=== PATIENT | female | born 1970 | race Caucasian/White ===

== ENCOUNTER 2017-04-20 10:55 | Emergency (ER) | payer OTHER, BC ==
[~2017-04-20] VITALS: Ht 154.9 cm; Wt 67.7 kg
[~2017-04-20 10:55] MED LIST: CIPR500T19; FLAG500T; VICO5TAB
[2017-04-20] MEDS ORDERED: MULT1TAB18 PO (11:04)
--- NOTE | 2017-04-20 11:54 | REP ---
Right ankle series: Four views. History: Right ankle and foot pain post injury. Findings: Four views of the right ankle demonstrate an intact ankle mortise. No fracture or subluxation is seen. Impression: Negative views of the right ankle. Signed by Sukhdeep Araya MD 04/20/2017 11:45 A
--- NOTE | 2017-04-20 11:55 | REP ---
Right foot series: 4 views History: Pain after an injury . Findings: Four views of the right foot demonstrate normal bones, joints, and soft tissues. No fracture or subluxation is seen. No opaque foreign body noted. Impression Negative right foot series. Signed by Sukhdeep Araya MD 04/20/2017 11:46 A
[2017-04-20] MEDS ORDERED: IBUPROFEN 600 MG TAB PO ONE (12:30)
[2017-04-20 12:33] VITALS: BP 117/65
== END 2017-04-20 12:43 | disposition home or self-care (01) ==
LOC: M ED 10:55
DX: S93.601A Unspecified sprain of right foot, initial encounter (principal); S90.31XA Contusion of right foot, initial encounter; X58.XXXA Exposure to other specified factors, initial encounter; Y92.9 Unspecified place or not applicable; Y93.9 Activity, unspecified; Y99.0 Civilian activity done for income or pay; Z79.899 Other long term (current) drug therapy; Z91.040 Latex allergy status; Z88.0 Allergy status to penicillin

== ENCOUNTER 2017-04-25 10:50 | Emergency (ER) | payer OTHER, BC ==
[~2017-04-25] VITALS: Ht 152.4 cm; Wt 62.7 kg
[~2017-04-25 10:50] MED LIST changes: +MULT1TAB18 PO
[2017-04-25 10:52] VITALS: BP 131/72
--- NOTE | 2017-04-25 12:33 | REP ---
REASON: Pain after trauma. COMPARISON: Five days ago. FINDINGS: The joint spaces are symmetric and relatively well maintained. There is no evidence of acute fracture or destructive osseous lesion. IMPRESSION: Negative. There is no change from the prior exam. If the patient is experiencing chronic pain, consider followup with MRI if clinically relevant. Signed by Riaz Wilson DO 04/25/2017 02:23 P
== END 2017-04-25 12:59 | disposition home or self-care (01) ==
LOC: M ED 10:50
DX: S90.31XD Contusion of right foot, subsequent encounter (principal); Z51.89 Encounter for other specified aftercare; W22.8XXD Striking against or struck by other objects, subsequent encounter; Y92.129 Unspecified place in nursing home as the place of occurrence of the external cause; Y93.89 Activity, other specified; Y99.0 Civilian activity done for income or pay; Z79.899 Other long term (current) drug therapy; Z88.0 Allergy status to penicillin; Z91.040 Latex allergy status

== ENCOUNTER 2017-09-25 11:25 | Emergency (ER) | payer OTHER, BC | END 2017-09-25 12:20 | disposition home or self-care (01) | LOC: M ED 11:25 | DX: M54.16 Radiculopathy, lumbar region (principal); Z87.19 Personal history of other diseases of the digestive system; Z88.0 Allergy status to penicillin; Z91.040 Latex allergy status | CPT/HCPCS: 99282 ==

== ENCOUNTER 2017-10-14 13:34 | Inpatient (IN) | payer BC, OTHER ==
[2017-10-14] MEDS: NS 1,000 ML IV ×3 (14:27→22:20)
[2017-10-14] MEDS: KETOROLAC 30 MG/ML VIAL (J1885) IV (14:27)
[2017-10-14] MEDS: ONDANSETRON 4MG/2ML VIAL (J2405) IV ×3 (14:27→20:16)
[2017-10-14 14:28] LABS: BASO % 0.1 % (0.0-1.0); HEMATOCRIT 45.2 % (36.0-47.0); HEMOGLOBIN 15.4 g/dl (12.0-16.0); IMMATURE GRANULOCYTE % 0.3 % (0-3.0); LYMPH # 1.2 10^3/uL (1.5-4.5); LYMPH % 8.9 % (24.0-44.0); MEAN CORPUSCULAR HEMOGLOBIN 30.3 pg (27.0-33.0); MEAN CORPUSCULAR HGB CONC 34.1 g/dl (32.0-36.5); MONO # 0.6 10^3/uL (0.0-0.8); MONO % 4.3 % (0.0-5.0); NEUTROPHILS # 11.2 10^3/uL (1.8-7.7); NEUTROPHILS % 86.4 % (36.0-66.0); PLATELET COUNT, AUTOMATED 376 10^3/uL (150-450); RED BLOOD COUNT 5.08 10^6/uL (4.00-5.40); RED CELL DISTRIBUTION WIDTH 12.3 % (11.5-14.5); WHITE BLOOD COUNT 12.9 10^3/uL (4.0-10.0)
[2017-10-14 14:51] LABS: ALBUMIN 4.1 GM/DL (3.2-5.2); ALBUMIN/GLOBULIN RATIO 0.95 (1.00-1.93); ALKALINE PHOSPHATASE 79 U/L (45-117); ALT/SGPT 27 U/L (12-78); AMYLASE 66 U/L (25-115); ANION GAP 9 MEQ/L (8-16); AST/SGOT 23 U/L (7-37); BILIRUBIN,DIRECT 0.1 MG/DL (0.0-0.2); BILIRUBIN,TOTAL 0.5 MG/DL (0.2-1.0); BLOOD UREA NITROGEN 13 MG/DL (7-18); CALCIUM LEVEL 8.9 MG/DL (8.5-10.1); CARBON DIOXIDE LEVEL 25 MEQ/L (21-32); CHLORIDE LEVEL 105 MEQ/L (98-107); CREATININE FOR GFR 0.81 MG/DL (0.55-1.30); GLOMERULAR FILTRATION RATE > 60.0 (>58); GLUCOSE, FASTING 123 MG/DL (70-100); LIPASE 189 U/L (73-393); SODIUM LEVEL 139 MEQ/L (136-145); TOTAL PROTEIN 8.4 GM/DL (6.4-8.2)
[2017-10-14] MEDS ORDERED: ISOVUE-370 76% 100ML VIAL (Q9967) As Ordered (14:52)
[2017-10-14 15:31] LABS: KETONE, URINE AUTO RFX 1+ mg/dL (NEGATIVE); MUCUS, URINE RFX SMALL (NEGATIVE); NITRITE, URINE AUTO RFX NEGATIVE (NEGATIVE); RBC, URINE AUTO RFX 5 /HPF (0-3); SQUAM EPITHELIAL CELL UR AURFX 12 /HPF (0-6); WBC, URINE AUTO RFX 3 /HPF (0-3)
[2017-10-14 15:32] LABS: LEUKOCYTE ESTERASE UR AUTO RFX TRACE (NEGATIVE); SPECIFIC GRAVITY UR AUTO RFX >1.060 (1.002-1.035)
[2017-10-14] MEDS: PANTOPRAZOLE 40MG INJ (PROTONIX) (C9113) IV (19:07)
[2017-10-14] MEDS: CIPROFLOXACIN 400 MG in APPROPRIATE DILUENT 1 EA IV (19:23)
[2017-10-14] MEDS: PROMETHAZINE INJ 25 MG/ML VIAL (J2550) IV (21:29)
[2017-10-14] MEDS: MORPHINE 4 MG/ML 1ML VIAL (J2270) IV (21:30)
[2017-10-14] MEDS: metroNIDAZOLE 500 MG in APPROPRIATE DILUENT 1 EA IV (22:20)
[2017-10-15] MEDS: metroNIDAZOLE 500 MG in APPROPRIATE DILUENT 1 EA IV ×3 (04:48→20:58)
[2017-10-15] MEDS: ONDANSETRON 4MG/2ML VIAL (J2405) IV ×2 (04:55→18:18)
[2017-10-15] MEDS: NS 1,000 ML IV ×3 (04:55→23:58)
[2017-10-15] MEDS: CIPROFLOXACIN 400 MG in APPROPRIATE DILUENT 1 EA IV ×2 (06:23→18:20)
[2017-10-15 06:57] LABS: HEMATOCRIT 37.2 % (36.0-47.0); MEAN CORPUSCULAR HEMOGLOBIN 30.4 pg (27.0-33.0); MEAN CORPUSCULAR HGB CONC 33.9 g/dl (32.0-36.5); MEAN CORPUSCULAR VOLUME 89.9 fl (80.0-96.0); PLATELET COUNT, AUTOMATED 303 10^3/uL (150-450); RED BLOOD COUNT 4.14 10^6/uL (4.00-5.40); RED CELL DISTRIBUTION WIDTH 12.6 % (11.5-14.5); WHITE BLOOD COUNT 9.8 10^3/uL (4.0-10.0)
[2017-10-15 07:06] LABS: HEMOGLOBIN 12.6 g/dl (12.0-16.0)
[2017-10-15 07:18] LABS: ANION GAP 7 MEQ/L (8-16); BLOOD UREA NITROGEN 12 MG/DL (7-18); CALCIUM LEVEL 7.9 MG/DL (8.5-10.1); CARBON DIOXIDE LEVEL 27 MEQ/L (21-32); CHLORIDE LEVEL 110 MEQ/L (98-107); CREATININE FOR GFR 0.66 MG/DL (0.55-1.30); GLOMERULAR FILTRATION RATE > 60.0 (>58); GLUCOSE, FASTING 122 MG/DL (70-100); POTASSIUM SERUM 3.3 MEQ/L (3.5-5.1); SODIUM LEVEL 144 MEQ/L (136-145)
[2017-10-15] MEDS: PROMETHAZINE INJ 25 MG/ML VIAL (J2550) IV (09:47)
[2017-10-15] MEDS: PANTOPRAZOLE 40MG INJ (PROTONIX) (C9113) IV (09:47)
[2017-10-15] MEDS: MORPHINE 4 MG/ML 1ML VIAL (J2270) IV ×3 (09:50→18:20)
[2017-10-15] MEDS: CEPACOL LOZENGE PO ×2 (13:21→16:01)
[2017-10-15] MEDS: METOCLOPRAMIDE INJ 10MG/2ML VIAL (J2765) IV ×2 (13:23→21:03)
[2017-10-15] MEDS: CHLORASEPTIC SPRAY MT ×2 (13:23→16:01)
[2017-10-16] MEDS: metroNIDAZOLE 500 MG in APPROPRIATE DILUENT 1 EA IV ×2 (05:30→15:23)
[2017-10-16] MEDS: CIPROFLOXACIN 400 MG in APPROPRIATE DILUENT 1 EA IV ×2 (06:34→18:51)
[2017-10-16 06:43] LABS: HEMATOCRIT 34.5 % (36.0-47.0); HEMOGLOBIN 11.8 g/dl (12.0-16.0); MEAN CORPUSCULAR HEMOGLOBIN 30.8 pg (27.0-33.0); MEAN CORPUSCULAR HGB CONC 34.2 g/dl (32.0-36.5); MEAN CORPUSCULAR VOLUME 90.1 fl (80.0-96.0); PLATELET COUNT, AUTOMATED 280 10^3/uL (150-450); RED BLOOD COUNT 3.83 10^6/uL (4.00-5.40); RED CELL DISTRIBUTION WIDTH 12.2 % (11.5-14.5); WHITE BLOOD COUNT 9.4 10^3/uL (4.0-10.0)
[2017-10-16 06:57] LABS: ANION GAP 7 MEQ/L (8-16); BLOOD UREA NITROGEN 9 MG/DL (7-18); CALCIUM LEVEL 7.5 MG/DL (8.5-10.1); CARBON DIOXIDE LEVEL 24 MEQ/L (21-32); CHLORIDE LEVEL 113 MEQ/L (98-107); CREATININE FOR GFR 0.54 MG/DL (0.55-1.30); GLOMERULAR FILTRATION RATE > 60.0 (>58); GLUCOSE, FASTING 90 MG/DL (70-100); POTASSIUM SERUM 3.4 MEQ/L (3.5-5.1); SODIUM LEVEL 144 MEQ/L (136-145)
[2017-10-16] MEDS: PANTOPRAZOLE 40MG INJ (PROTONIX) (C9113) IV (08:52)
[2017-10-16] MEDS: MORPHINE 4 MG/ML 1ML VIAL (J2270) IV (08:52)
[2017-10-16] MEDS: ONDANSETRON 4MG/2ML VIAL (J2405) IV (08:53)
[2017-10-16] MEDS: ACETAMINOPHEN TAB 650MG DOSE (2X325MG) PO (12:09)
[2017-10-16] MEDS ORDERED: ONDANSETRON 4 MG ORAL DISINTEGRATING TAB (S0181) PO (20:15)
[2017-10-17 07:24] LABS: HEMATOCRIT 35.6 % (36.0-47.0); HEMOGLOBIN 12.1 g/dl (12.0-16.0); MEAN CORPUSCULAR HEMOGLOBIN 29.8 pg (27.0-33.0); MEAN CORPUSCULAR VOLUME 87.7 fl (80.0-96.0); PLATELET COUNT, AUTOMATED 312 10^3/uL (150-450); RED BLOOD COUNT 4.06 10^6/uL (4.00-5.40); WHITE BLOOD COUNT 7.3 10^3/uL (4.0-10.0)
[2017-10-17 07:45] LABS: ANION GAP 6 MEQ/L (8-16); BLOOD UREA NITROGEN 6 MG/DL (7-18); CALCIUM LEVEL 8.3 MG/DL (8.5-10.1); CARBON DIOXIDE LEVEL 26 MEQ/L (21-32); CHLORIDE LEVEL 111 MEQ/L (98-107); GLOMERULAR FILTRATION RATE > 60.0 (>58); GLUCOSE, FASTING 92 MG/DL (70-100); POTASSIUM SERUM 3.5 MEQ/L (3.5-5.1); SODIUM LEVEL 143 MEQ/L (136-145)
[2017-10-17] MEDS: PANTOPRAZOLE 40MG TAB (PROTONIX) PO (08:30)
== END 2017-10-17 11:45 | disposition home or self-care (01) | DRG 247 ==
LOC: M ED 13:34 → M ED INP 15:54 → M PED 20:53
DX: K56.609 Unspecified intestinal obstruction, unspecified as to partial versus complete obstruction (principal)

== ENCOUNTER → 2017-10-31 | Outpatient (CLI) | payer BC ==
[2017-10-31 10:59] LABS: BASO % 0.1 % (0.0-1.0); EOS # 0.1 10^3/uL (0.0-0.50); EOS % 0.8 % (0.0-3.0); HEMATOCRIT 41.2 % (36.0-47.0); HEMOGLOBIN 13.7 g/dl (12.0-15.5); IMMATURE GRANULOCYTE % 0.3 % (0-3.0); LYMPH # 2.4 10^3/uL (1.5-4.5); LYMPH % 26.3 % (24.0-44.0); MEAN CORPUSCULAR HEMOGLOBIN 29.8 pg (27.0-33.0); MEAN CORPUSCULAR HGB CONC 33.3 g/dl (32.0-36.5); MEAN CORPUSCULAR VOLUME 89.6 fl (80.0-96.0); MONO # 0.8 10^3/uL (0.0-0.8); MONO % 8.5 % (0.0-5.0); NEUTROPHILS # 5.8 10^3/uL (1.8-7.7); PLATELET COUNT, AUTOMATED 361 10^3/uL (150-450); RED CELL DISTRIBUTION WIDTH 12.2 % (11.5-14.5)
== END ==
LOC: M LAB 10:26
DX: R19.7 Diarrhea, unspecified (principal)
CPT/HCPCS: 83516

== ENCOUNTER 2017-11-07 18:31 | Observation (INO) | payer BC ==
[2017-11-07] MEDS: NS 1,000 ML IV (19:58)
[2017-11-07] MEDS: ONDANSETRON 4MG/2ML VIAL (J2405) IV (19:58)
[2017-11-07] MEDS: MORPHINE 4 MG/ML 1ML VIAL (J2270) IV (19:59)
[2017-11-07 20:07] LABS: BASO % 0.2 % (0.0-1.0); EOS % 0.2 % (0.0-3.0); HEMATOCRIT 42.6 % (36.0-47.0); HEMOGLOBIN 14.5 g/dl (12.0-15.5); IMMATURE GRANULOCYTE % 0.3 % (0-3.0); LYMPH # 1.7 10^3/uL (1.5-4.5); LYMPH % 10.2 % (24.0-44.0); MONO # 0.9 10^3/uL (0.0-0.8); MONO % 5.4 % (0.0-5.0); NEUTROPHILS # 13.8 10^3/uL (1.8-7.7); NEUTROPHILS % 83.7 % (36.0-66.0); PLATELET COUNT, AUTOMATED 345 10^3/uL (150-450); RED BLOOD COUNT 4.84 10^6/uL (4.00-5.40); RED CELL DISTRIBUTION WIDTH 12.2 % (11.5-14.5); WHITE BLOOD COUNT 16.5 10^3/uL (4.0-10.0)
[2017-11-07 20:12] LABS: AMORPHOUS SEDIMENT RFX SMALL (NEGATIVE); KETONE, URINE AUTO RFX TRACE mg/dL (NEGATIVE); LEUKOCYTE ESTERASE UR AUTO RFX 1+ (NEGATIVE); MUCUS, URINE RFX SMALL (NEGATIVE); NITRITE, URINE AUTO RFX NEGATIVE (NEGATIVE); RBC, URINE AUTO RFX 2 /HPF (0-3); SPECIFIC GRAVITY UR AUTO RFX 1.009 (1.002-1.035); SQUAM EPITHELIAL CELL UR AURFX 3 /HPF (0-6); WBC, URINE AUTO RFX 9 /HPF (0-3)
[2017-11-07] MEDS ORDERED: ISOVUE-370 76% 100ML VIAL (Q9967) As Ordered (20:39)
[2017-11-07 20:42] LABS: ALBUMIN 4.1 GM/DL (3.2-5.2); ALKALINE PHOSPHATASE 74 U/L (45-117); ALT/SGPT 22 U/L (12-78); ANION GAP 7 MEQ/L (8-16); AST/SGOT 18 U/L (7-37); BILIRUBIN,DIRECT < 0.1 MG/DL (0.0-0.2); BILIRUBIN,TOTAL 0.4 MG/DL (0.2-1.0); BLOOD UREA NITROGEN 8 MG/DL (7-18); CALCIUM LEVEL 8.9 MG/DL (8.5-10.1); CARBON DIOXIDE LEVEL 25 MEQ/L (21-32); CHLORIDE LEVEL 111 MEQ/L (98-107); GLOMERULAR FILTRATION RATE > 60.0 (>58); GLUCOSE, FASTING 115 MG/DL (70-100); LIPASE 132 U/L (73-393); POTASSIUM SERUM 3.7 MEQ/L (3.5-5.1); SODIUM LEVEL 143 MEQ/L (136-145); TOTAL PROTEIN 8.2 GM/DL (6.4-8.2)
[2017-11-07 20:44] LABS: LACTIC ACID SEPSIS PROTOCOL 0.9 MMOL/L (0.4-2.0)
[2017-11-07] MEDS ORDERED: ONDANSETRON 4MG/2ML VIAL (J2405) IV (22:45)
[2017-11-08] MEDS: NS 1,000 ML IV (00:08)
[2017-11-08] MEDS: FAMOTIDINE 20 MG TAB PO ×2 (00:23→21:13)
[2017-11-08] MEDS: CIPROFLOXACIN 400 MG in APPROPRIATE DILUENT 1 EA IV ×3 (00:23→22:54)
[2017-11-08] MEDS: LACTOBACILLUS ACIDOPHILUS CAP (BACID) PO ×3 (00:23→21:13)
[2017-11-08] MEDS: metroNIDAZOLE 500 MG in APPROPRIATE DILUENT 1 EA IV ×3 (02:00→18:03)
[2017-11-08] MEDS: ACETAMINOPHEN TAB 650MG DOSE (2X325MG) PO ×3 (04:10→18:58)
[2017-11-08 06:09] LABS: HEMATOCRIT 34.5 % (36.0-47.0); MEAN CORPUSCULAR HEMOGLOBIN 29.5 pg (27.0-33.0); MEAN CORPUSCULAR HGB CONC 33.3 g/dl (32.0-36.5); MEAN CORPUSCULAR VOLUME 88.5 fl (80.0-96.0); PLATELET COUNT, AUTOMATED 293 10^3/uL (150-450); RED CELL DISTRIBUTION WIDTH 12.5 % (11.5-14.5); WHITE BLOOD COUNT 7.6 10^3/uL (4.0-10.0)
[2017-11-08 06:14] LABS: HEMOGLOBIN 11.5 g/dl (12.0-15.5)
[2017-11-08 06:27] LABS: ANION GAP 6 MEQ/L (8-16); BLOOD UREA NITROGEN 7 MG/DL (7-18); CALCIUM LEVEL 7.6 MG/DL (8.5-10.1); CARBON DIOXIDE LEVEL 23 MEQ/L (21-32); CHLORIDE LEVEL 112 MEQ/L (98-107); CREATININE FOR GFR 0.57 MG/DL (0.55-1.30); GLOMERULAR FILTRATION RATE > 60.0 (>58); GLUCOSE, FASTING 98 MG/DL (70-100); POTASSIUM SERUM 3.7 MEQ/L (3.5-5.1); SODIUM LEVEL 141 MEQ/L (136-145)
[2017-11-08] MEDS: ENOXAPARIN 40 MG/0.4 ML SYRINGE (J1650) SC (09:00)
[2017-11-09] MEDS: metroNIDAZOLE 500 MG in APPROPRIATE DILUENT 1 EA IV ×3 (01:40→10:16)
[2017-11-09 07:00] LABS: HEMATOCRIT 35.5 % (36.0-47.0); HEMOGLOBIN 11.8 g/dl (12.0-15.5); MEAN CORPUSCULAR HEMOGLOBIN 29.4 pg (27.0-33.0); MEAN CORPUSCULAR HGB CONC 33.2 g/dl (32.0-36.5); MEAN CORPUSCULAR VOLUME 88.5 fl (80.0-96.0); PLATELET COUNT, AUTOMATED 290 10^3/uL (150-450); RED BLOOD COUNT 4.01 10^6/uL (4.00-5.40); RED CELL DISTRIBUTION WIDTH 12.3 % (11.5-14.5); WHITE BLOOD COUNT 5.6 10^3/uL (4.0-10.0)
[2017-11-09 07:13] LABS: ANION GAP 6 MEQ/L (8-16); BLOOD UREA NITROGEN 4 MG/DL (7-18); CALCIUM LEVEL 8.1 MG/DL (8.5-10.1); CARBON DIOXIDE LEVEL 22 MEQ/L (21-32); CHLORIDE LEVEL 115 MEQ/L (98-107); CREATININE FOR GFR 0.64 MG/DL (0.55-1.30); GLOMERULAR FILTRATION RATE > 60.0 (>58); GLUCOSE, FASTING 93 MG/DL (70-100); POTASSIUM SERUM 3.8 MEQ/L (3.5-5.1); SODIUM LEVEL 143 MEQ/L (136-145)
[2017-11-09] MEDS: LACTOBACILLUS ACIDOPHILUS CAP (BACID) PO ×2 (08:17→21:02)
[2017-11-09] MEDS: ENOXAPARIN 40 MG/0.4 ML SYRINGE (J1650) SC (08:18)
[2017-11-09] MEDS: CIPROFLOXACIN 500 MG TAB PO ×2 (11:16→17:08)
[2017-11-09] MEDS: metroNIDAZOLE (FLAGYL) 500 MG TAB PO ×2 (14:06→21:02)
[2017-11-09] MEDS: ONDANSETRON 4 MG TAB (S0181) PO (15:36)
[2017-11-09] MEDS: FAMOTIDINE 20 MG TAB PO (21:02)
[2017-11-09] MEDS: ACETAMINOPHEN TAB 650MG DOSE (2X325MG) PO (21:04)
[2017-11-10] MEDS: ACETAMINOPHEN TAB 650MG DOSE (2X325MG) PO (01:07)
[2017-11-10] MEDS: metroNIDAZOLE (FLAGYL) 500 MG TAB PO (05:56)
[2017-11-10] MEDS: CIPROFLOXACIN 500 MG TAB PO (05:56)
[2017-11-10] MEDS: ENOXAPARIN 40 MG/0.4 ML SYRINGE (J1650) SC (07:39)
[2017-11-10 07:41] LABS: HEMATOCRIT 35.6 % (36.0-47.0); MEAN CORPUSCULAR HGB CONC 33.7 g/dl (32.0-36.5); PLATELET COUNT, AUTOMATED 282 10^3/uL (150-450); RED CELL DISTRIBUTION WIDTH 12.1 % (11.5-14.5); WHITE BLOOD COUNT 6.1 10^3/uL (4.0-10.0)
[2017-11-10 07:57] LABS: ANION GAP 8 MEQ/L (8-16); BLOOD UREA NITROGEN 7 MG/DL (7-18); CALCIUM LEVEL 8.3 MG/DL (8.5-10.1); CARBON DIOXIDE LEVEL 22 MEQ/L (21-32); CHLORIDE LEVEL 111 MEQ/L (98-107); CREATININE FOR GFR 0.74 MG/DL (0.55-1.30); GLOMERULAR FILTRATION RATE > 60.0 (>58); GLUCOSE, FASTING 106 MG/DL (70-100); POTASSIUM SERUM 3.8 MEQ/L (3.5-5.1); SODIUM LEVEL 141 MEQ/L (136-145)
[2017-11-10] MEDS: LACTOBACILLUS ACIDOPHILUS CAP (BACID) PO (08:20)
== END 2017-11-10 11:06 | disposition home or self-care (01) ==
LOC: M MSPAV 23:40 → M ED 18:31 → M ED INP 22:39 → M MS4PR 11-08 19:45
DX: K52.9 Noninfective gastroenteritis and colitis, unspecified (principal); D72.829 Elevated white blood cell count, unspecified; Z88.0 Allergy status to penicillin; Z91.040 Latex allergy status
CPT/HCPCS: J2270

== ENCOUNTER 2018-06-28 00:59 | Inpatient (IN) | payer BC ==
[2018-06-28 01:55] LABS: BASO % 0.2 % (0.0-1.0); EOS # 0.1 10^3/uL (0.0-0.50); EOS % 0.7 % (0.0-3.0); HEMATOCRIT 42.8 % (36.0-47.0); HEMOGLOBIN 14.7 g/dl (12.0-15.5); IMMATURE GRANULOCYTE % 0.5 % (0-3.0); LYMPH # 2.1 10^3/uL (1.5-4.5); MEAN CORPUSCULAR HEMOGLOBIN 30.4 pg (27.0-33.0); MEAN CORPUSCULAR HGB CONC 34.3 g/dl (32.0-36.5); MEAN CORPUSCULAR VOLUME 88.4 fl (80.0-96.0); MONO # 0.7 10^3/uL (0.0-0.8); MONO % 6.2 % (0.0-5.0); NEUTROPHILS # 8.1 10^3/uL (1.8-7.7); NEUTROPHILS % 73.4 % (36.0-66.0); PLATELET COUNT, AUTOMATED 353 10^3/uL (150-450); RED BLOOD COUNT 4.84 10^6/uL (4.00-5.40); WHITE BLOOD COUNT 11.1 10^3/uL (4.0-10.0)
[2018-06-28 02:17] LABS: ALBUMIN 3.8 GM/DL (3.2-5.2); ALKALINE PHOSPHATASE 98 U/L (45-117); ALT/SGPT 38 U/L (12-78); ANION GAP 9 MEQ/L (8-16); AST/SGOT 24 U/L (7-37); BILIRUBIN,DIRECT < 0.1 MG/DL (0.0-0.2); BILIRUBIN,TOTAL 0.4 MG/DL (0.2-1.0); BLOOD UREA NITROGEN 15 MG/DL (7-18); CALCIUM LEVEL 9.1 MG/DL (8.5-10.1); CARBON DIOXIDE LEVEL 25 MEQ/L (21-32); CHLORIDE LEVEL 106 MEQ/L (98-107); CREATININE FOR GFR 0.83 MG/DL (0.55-1.30); GLOMERULAR FILTRATION RATE > 60.0 (>58); GLUCOSE, FASTING 116 MG/DL (70-100); LIPASE 155 U/L (73-393); POTASSIUM SERUM 4.1 MEQ/L (3.5-5.1); SODIUM LEVEL 140 MEQ/L (136-145); TOTAL PROTEIN 7.6 GM/DL (6.4-8.2)
[2018-06-28] MEDS ORDERED: METOCLOPRAMIDE INJ 10MG/2ML VIAL (J2765) As Ordered (02:19)
[2018-06-28] MEDS: METOCLOPRAMIDE INJ 10MG/2ML VIAL (J2765) IV (02:28)
[2018-06-28] MEDS: HYDROMORPHONE HCL 0.5 MG/ 0.5 ML SYRINGE (J1170 PER 1) IV (02:41)
[2018-06-28] MEDS ORDERED: ISOVUE-370 76% 100ML VIAL (Q9967) As Ordered (02:43)
[2018-06-28] MEDS: ONDANSETRON 4MG/2ML VIAL (J2405) IV ×3 (02:52→20:13)
[2018-06-28] MEDS: GASTROGRAFIN SOLUTION 30ML PO ×2 (03:00→03:20)
[2018-06-28 04:08] LABS: AMORPHOUS SEDIMENT SMALL (NEGATIVE); APPEARANCE, URINE CLOUDY (CLEAR); BACTERIA, URINE AUTO NEGATIVE (NEGATIVE); BILIRUBIN, URINE AUTO NEGATIVE (NEGATIVE); BLOOD, URINE BLOOD 1+ (NEGATIVE); COLOR, URINE YELLOW (YELLOW); GLUCOSE, URINE (UA) AUTO NEGATIVE (NEGATIVE); KETONE, URINE AUTO NEGATIVE (NEGATIVE); LEUKOCYTE ESTERASE, URINE AUTO NEGATIVE (NEGATIVE); MUCUS, URINE SMALL (NEGATIVE); NITRITE, URINE AUTO NEGATIVE (NEGATIVE); PROTEIN, URINE AUTO NEGATIVE (NEGATIVE); RBC, URINE AUTO 5 /HPF (0-3); SPECIFIC GRAVITY URINE AUTO 1.017 (1.002-1.035); SQUAMOUS EPITHELIAL CELL UR AU 1 /HPF (0-6); UROBILINOGEN, URINE AUTO 0.2 mg/dL (0.0-2.0); WBC, URINE AUTO 1 /HPF (0-3)
[2018-06-28] MEDS: NS 1,000 ML IV (05:30)
[2018-06-28] MEDS: LIDOCAINE 2% 5ML JELLY UROJET TOP (06:00)
[2018-06-28] MEDS ORDERED: CEPACOL LOZENGE PO (08:30)
[2018-06-28] MEDS ORDERED: PROMETHAZINE INJ 25 MG/ML VIAL (J2550) IV (08:30)
[2018-06-28] MEDS ORDERED: METOCLOPRAMIDE INJ 10MG/2ML VIAL (J2765) IV (08:30)
[2018-06-28] MEDS: MORPHINE 4 MG/ML 1ML VIAL/SYRINGE (J2270) IV (09:28)
[2018-06-28] MEDS: D5W/LR 1,000 ML IV ×2 (10:36→16:20)
[2018-06-28] MEDS: PANTOPRAZOLE 40MG INJ (PROTONIX) (C9113) IV (10:42)
[2018-06-28] MEDS: KETOROLAC 30 MG/ML VIAL (J1885) IV (16:19)
[2018-06-28] MEDS: CHLORASEPTIC SPRAY MT (18:43)
[2018-06-29] MEDS: D5W/LR 1,000 ML IV ×2 (02:30→11:06)
[2018-06-29 07:37] LABS: HEMATOCRIT 35.8 % (36.0-47.0); MEAN CORPUSCULAR HEMOGLOBIN 29.8 pg (27.0-33.0); MEAN CORPUSCULAR VOLUME 90.4 fl (80.0-96.0); PLATELET COUNT, AUTOMATED 293 10^3/uL (150-450); RED BLOOD COUNT 3.96 10^6/uL (4.00-5.40); RED CELL DISTRIBUTION WIDTH 12.4 % (11.5-14.5); WHITE BLOOD COUNT 7.5 10^3/uL (4.0-10.0)
[2018-06-29 07:49] LABS: HEMOGLOBIN 11.8 g/dl (12.0-15.5)
[2018-06-29 08:05] LABS: ANION GAP 6 MEQ/L (8-16); BLOOD UREA NITROGEN 10 MG/DL (7-18); CARBON DIOXIDE LEVEL 26 MEQ/L (21-32); CHLORIDE LEVEL 109 MEQ/L (98-107); CREATININE FOR GFR 0.79 MG/DL (0.55-1.30); GLOMERULAR FILTRATION RATE > 60.0 (>58); GLUCOSE, FASTING 114 MG/DL (70-100); POTASSIUM SERUM 3.7 MEQ/L (3.5-5.1); SODIUM LEVEL 141 MEQ/L (136-145)
[2018-06-29] MEDS: PANTOPRAZOLE 40MG INJ (PROTONIX) (C9113) IV (09:30)
[2018-06-29] MEDS: KETOROLAC 30 MG/ML VIAL (J1885) IV ×2 (09:30→17:58)
[2018-06-29] MEDS ORDERED: E-Z-PAQUE 96% w/w SUSP 176GM BTL As Ordered (12:11)
[2018-06-29] MEDS ORDERED: GASTROGRAFIN SOLUTION 30ML (Q9963) As Ordered (14:12)
[2018-06-29] MEDS: ONDANSETRON 4MG/2ML VIAL (J2405) IV (17:57)
[2018-06-30 07:25] LABS: HEMATOCRIT 38.1 % (36.0-47.0); HEMOGLOBIN 12.6 g/dl (12.0-15.5); MEAN CORPUSCULAR HEMOGLOBIN 30.1 pg (27.0-33.0); MEAN CORPUSCULAR HGB CONC 33.1 g/dl (32.0-36.5); MEAN CORPUSCULAR VOLUME 91.1 fl (80.0-96.0); PLATELET COUNT, AUTOMATED 306 10^3/uL (150-450); RED BLOOD COUNT 4.18 10^6/uL (4.00-5.40); WHITE BLOOD COUNT 7.2 10^3/uL (4.0-10.0)
[2018-06-30 07:43] LABS: ANION GAP 7 MEQ/L (8-16); BLOOD UREA NITROGEN 8 MG/DL (7-18); CALCIUM LEVEL 8.6 MG/DL (8.5-10.1); CARBON DIOXIDE LEVEL 27 MEQ/L (21-32); CHLORIDE LEVEL 108 MEQ/L (98-107); CREATININE FOR GFR 0.73 MG/DL (0.55-1.30); GLOMERULAR FILTRATION RATE > 60.0 (>58); GLUCOSE, FASTING 88 MG/DL (70-100); POTASSIUM SERUM 3.5 MEQ/L (3.5-5.1); SODIUM LEVEL 142 MEQ/L (136-145)
[2018-06-30] MEDS: PANTOPRAZOLE 40MG INJ (PROTONIX) (C9113) IV (09:48)
[2018-06-30] MEDS: FAMOTIDINE 20 MG TAB PO (12:07)
== END 2018-06-30 15:25 | disposition home or self-care (01) | DRG 247 ==
LOC: M ED 00:59 → M ED INP 08:18 → M PED 11:42
DX: K56.609 Unspecified intestinal obstruction, unspecified as to partial versus complete obstruction (principal)

== ENCOUNTER 2018-09-08 09:13 | Inpatient (IN) | payer BC ==
[~2018-09-08] VITALS: Ht 154.9 cm; Wt 69.7 kg
[~2018-09-08 09:13] MED LIST changes: +ADVI200C5 PO; +Acetaminophen Tab PO; +BACITAB PO; +CIPR-249 PO; +COLA100C5 PO; +CYCL10TA PO; +DOCU100C16 PO; +FLAG500T PO; +IBUP200C25 PO; +ONDA4TAB5; +ONDA4TAB5 PO; +PERC5TAB12 PO; +RANI300T; +RANI300T PO; +TUMS500C PO
[2018-09-08] MEDS ORDERED: ONDANSETRON 4MG/2ML VIAL (J2405) IV ONE ×2 (09:45→14:00)
[2018-09-08] MEDS ORDERED: NS 1,000 ML IV ONE (09:45)
[2018-09-08] MEDS: MORPHINE 4 MG/ML 1ML VIAL/SYRINGE (J2270) IV PRN ×2 (09:52→14:00)
[2018-09-08 10:07] LABS: BASO % 0.1 % (0.0-1.0); HEMATOCRIT 47.9 % (36.0-47.0); HEMOGLOBIN 16.3 g/dl (12.0-15.5); LYMPH % 8.3 % (24.0-44.0); MEAN CORPUSCULAR HEMOGLOBIN 30.1 pg (27.0-33.0); MEAN CORPUSCULAR VOLUME 88.5 fl (80.0-96.0); MONO # 0.3 10^3/uL (0.0-0.8); MONO % 2.7 % (0.0-5.0); NEUTROPHILS % 88.4 % (36.0-66.0); PLATELET COUNT, AUTOMATED 372 10^3/uL (150-450); RED BLOOD COUNT 5.41 10^6/uL (4.00-5.40); WHITE BLOOD COUNT 12.4 10^3/uL (4.0-10.0)
[2018-09-08 10:54] LABS: ALT/SGPT 31 U/L (12-78); BLOOD UREA NITROGEN 11 MG/DL (7-18); CALCIUM LEVEL 9.2 MG/DL (8.5-10.1); CARBON DIOXIDE LEVEL 24 MEQ/L (21-32); CHLORIDE LEVEL 105 MEQ/L (98-107); CREATININE FOR GFR 0.75 MG/DL (0.55-1.30); GLOMERULAR FILTRATION RATE > 60.0 (>58); GLUCOSE, FASTING 129 MG/DL (70-100); POTASSIUM SERUM 3.9 MEQ/L (3.5-5.1); SODIUM LEVEL 138 MEQ/L (136-145)
[2018-09-08 10:55] LABS: ALBUMIN 4.1 GM/DL (3.2-5.2); AMYLASE 64 U/L (25-115); BILIRUBIN,DIRECT < 0.1 MG/DL (0.0-0.2); BILIRUBIN,TOTAL 0.3 MG/DL (0.2-1.0); LIPASE 125 U/L (73-393); TOTAL PROTEIN 8.6 GM/DL (6.4-8.2)
[2018-09-08] MEDS ORDERED: ISOVUE-370 76% 100ML VIAL (Q9967) As Ordered ONE (11:15)
--- NOTE | 2018-09-08 12:17 | REP ---
CT abdomen and pelvis with IV but without oral contrast: History: Epigastric pain. Vomiting. Leukocytosis. History of small bowel obstruction. Comparison study: June 28, 2018. CT contrast dose: 100 ml of intravenous Isovue 370. CT findings: Preliminary short piece handler radiograph is noncontributory. There is no evidence of pleural effusion. The lung bases are clear. The liver shows minimal fatty infiltration. No focal liver lesion is seen. Spleen is unremarkable. There is a trace of perihepatic ascites fluid visible today. There are clips in the gallbladder fossa. No pancreatic lesion is seen. Kidneys enhance symmetrically and are morphologically intact. No retroperitoneal mass or adenopathy is observed. The patient is status post appendectomy. There is a small bowel obstruction pattern again noted in the abdomen with mild to moderate proximal dilation of mid jejunal loops and moderate distension of the distal jejunal loops. There are decompressed or normal caliber distal ileal loops in the pelvis and the colon is largely empty. There are scattered small areas of interloop ascites and minimal cul-de-sac ascitic fluid. There is mild mural and mucosal fold thickening in the dilated loops. There is no evidence of abscess or free air. No uterine or ovarian abnormality is seen. Impression: Recurrent small bowel obstruction. There is some fold and mural thickening in the small bowel loops. Trace of upper and lower abdominal ascites. No free air. Point of transition in the mid to distal ileum without a morphologically apparent lesion. Post cholecystectomy and appendectomy. Electronically Signed by Sukhdeep Araya MD 09/08/2018 03:35 P
[2018-09-08] MEDS ORDERED: TUMS500C PO (13:07)
[2018-09-08] MEDS ORDERED: RANI300T PO (13:07)
[2018-09-08] MEDS ORDERED: SUCR1TAB56 PO (13:07)
[2018-09-08] MEDS ORDERED: MIRA3350 PO (13:07)
[2018-09-08] MEDS ORDERED: DICY1CAP8 PO (13:07)
[2018-09-08] MEDS ORDERED: CETACAINE SPRAY 5GM TOP ONE (13:45)
[2018-09-08] MEDS ORDERED: MORPHINE 4 MG/ML 1ML VIAL/SYRINGE (J2270) IV PRN (14:00)
[2018-09-08] MEDS ORDERED: METOCLOPRAMIDE INJ 10MG/2ML VIAL (J2765) IV PRN (14:00)
[2018-09-08] MEDS ORDERED: ONDANSETRON 4MG/2ML VIAL (J2405) IV PRN (14:00)
[2018-09-08] MEDS: NS 1,000 ML IV SCH ×2 (15:05→22:44)
[2018-09-08 16:00] VITALS: BP 124/60
[2018-09-08] MEDS: KETOROLAC 30 MG/ML VIAL (J1885) IV PRN (16:03)
[2018-09-08] MEDS: PANTOPRAZOLE 40MG INJ (PROTONIX) (C9113) IV SCH (16:13)
[2018-09-08] MEDS ORDERED: CETACAINE SPRAY 5GM TOP PRN (18:45)
[2018-09-08] MEDS ORDERED: ACETAMINOPHEN TAB 650MG DOSE (2X325MG) PO PRN (18:45)
[2018-09-08] MEDS ORDERED: CHLORASEPTIC SPRAY MT PRN (19:00)
[2018-09-08 19:53] VITALS: BP 103/84
[2018-09-08] MEDS: diphenhydrAMINE INJ 50MG/ML VIAL (J1200) IV PRN (20:00)
[2018-09-09] VITALS: BP 108/55
[2018-09-09 04:00] VITALS: BP 101/47
[2018-09-09] MEDS: NS 1,000 ML IV SCH ×3 (05:53→21:15)
[2018-09-09 07:09] LABS: HEMATOCRIT 34.2 % (36.0-47.0); MEAN CORPUSCULAR HEMOGLOBIN 29.6 pg (27.0-33.0); MEAN CORPUSCULAR HGB CONC 32.7 g/dl (32.0-36.5); MEAN CORPUSCULAR VOLUME 90.2 fl (80.0-96.0); PLATELET COUNT, AUTOMATED 275 10^3/uL (150-450); RED BLOOD COUNT 3.79 10^6/uL (4.00-5.40); WHITE BLOOD COUNT 6.6 10^3/uL (4.0-10.0)
[2018-09-09 07:14] LABS: HEMOGLOBIN 11.2 g/dl (12.0-15.5)
[2018-09-09 07:31] LABS: BLOOD UREA NITROGEN 12 MG/DL (7-18); CALCIUM LEVEL 7.4 MG/DL (8.5-10.1); CARBON DIOXIDE LEVEL 24 MEQ/L (21-32); CHLORIDE LEVEL 113 MEQ/L (98-107); CREATININE FOR GFR 0.66 MG/DL (0.55-1.30); GLOMERULAR FILTRATION RATE > 60.0 (>58); GLUCOSE, FASTING 86 MG/DL (70-100); POTASSIUM SERUM 3.8 MEQ/L (3.5-5.1); SODIUM LEVEL 144 MEQ/L (136-145)
[2018-09-09 08:30] VITALS: BP 118/55
[2018-09-09] MEDS: PANTOPRAZOLE 40MG INJ (PROTONIX) (C9113) IV SCH (08:30)
--- NOTE | 2018-09-09 09:33 | HPE ---
DATE OF ADMISSION: 09/08/2018 HISTORY OF PRESENT ILLNESS: The patient has had several admissions with small-bowel obstruction in the past and acutely developed epigastric discomfort, nausea and vomiting over the last 12 hours prior to admission. She presents here today with no bowel movements and no flatus for 12 hours and feels as though this is a similar to previous episodes of small bowel obstruction. There had been unusual presentations on the CAT scans in the past concerning for possible inflammatory colitis or enteritis; however, this time it does not reveal that on the CAT scan, but does reveal small bowel obstruction pattern with transition in the distal small bowel. PAST MEDICAL HISTORY: Significant for history of appendectomy, history of cholecystectomy, history of bladder suspension, history of tubal ligation, history of cervical ablation, history of previous small bowel obstruction resolved with NG tube decompression. MEDICATIONS: None. ALLERGIES: None. PHYSICAL EXAMINATION: Reveals a 48-year-old female who looks stated age. HEENT: Reveals an atraumatic, normocephalic head with extraocular movements intact. Pupils are equal and reactive to light. Sclerae nonicteric. Her oropharynx is clear without exudate or lesions. Neck: Supple without adenopathy. Lungs are clear to auscultation without crackles, wheezes or rhonchi. Heart is regular without murmur. Abdomen is softly distended, tympanitic. No significant guarding, rebound or peritoneal signs are appreciated. Extremities: Warm and well-perfused. IMPRESSION AND PLAN: The patient has recurrence of her small bowel obstruction. I do feel an NG tube decompression is warranted and necessary. Will see how she does over the next 12-24 hours. Once she starts passing gas and has bowel movements, then my recommendation during this admission is to proceed with operative intervention with plan for laparoscopic lysis of adhesions, possible open laparotomy with lysis of adhesions if necessary. She understands and would like to proceed with definitive treatment for these recurrent repetitive small bowel obstructions that occur.
[2018-09-09] MEDS: KETOROLAC 30 MG/ML VIAL (J1885) IV PRN (11:23)
[2018-09-09 12:00] VITALS: BP 124/56
--- NOTE | 2018-09-09 14:35 | REP ---
KUB ABDOMEN AND PELVIS: KUB film of abdomen and pelvis is performed and correlated with the CT of 09/08/2018. No dilated small bowel loops are seen radiographically. Metallic clips are seen in the upper abdomen. The distal end of the nasogastric tube is seen in the left upper quadrant. There are phleboliths in the pelvis. IMPRESSION: No dilated small bowel loops visualized radiographically. A couple of small air filled nondilated small bowel loops are seen in the right upper quadrant. Electronically Signed by Ant Sher MD 09/09/2018 07:35 P
[2018-09-09 16:00] VITALS: BP 137/63
[2018-09-09 20:00] VITALS: BP 126/59
[2018-09-09] MEDS: diphenhydrAMINE INJ 50MG/ML VIAL (J1200) IV PRN (21:15)
[2018-09-10] VITALS (10 sets, daily range): BP systolic 107–132; BP diastolic 55–75
[2018-09-10] MEDS: NS 1,000 ML IV SCH (05:00)
[2018-09-10 07:08] LABS: HEMATOCRIT 38.2 % (36.0-47.0); HEMOGLOBIN 12.8 g/dl (12.0-15.5); MEAN CORPUSCULAR HGB CONC 33.5 g/dl (32.0-36.5); MEAN CORPUSCULAR VOLUME 89.5 fl (80.0-96.0); PLATELET COUNT, AUTOMATED 295 10^3/uL (150-450); RED BLOOD COUNT 4.27 10^6/uL (4.00-5.40); WHITE BLOOD COUNT 9.4 10^3/uL (4.0-10.0)
[2018-09-10 07:24] LABS: BLOOD UREA NITROGEN 6 MG/DL (7-18); CALCIUM LEVEL 7.6 MG/DL (8.5-10.1); CARBON DIOXIDE LEVEL 22 MEQ/L (21-32); CHLORIDE LEVEL 108 MEQ/L (98-107); CREATININE FOR GFR 0.56 MG/DL (0.55-1.30); GLOMERULAR FILTRATION RATE > 60.0 (>58); GLUCOSE, FASTING 69 MG/DL (70-100); POTASSIUM SERUM 3.2 MEQ/L (3.5-5.1); SODIUM LEVEL 140 MEQ/L (136-145)
[2018-09-10] MEDS ORDERED: BUPIVACAINE/EPIN 0.25% 30 ML VIAL As Ordered ONE (07:49)
[2018-09-10] MEDS ORDERED: dexameTHASONE 4 MG/ML 1ML VIAL (J1100) As Ordered ONE (07:54)
[2018-09-10] MEDS ORDERED: ROCURONIUM BROMIDE 50 MG/5 ML VIAL As Ordered ONE ×2 (07:54→10:17)
[2018-09-10] MEDS ORDERED: fentaNYL 100 MCG/2 ML INJECTION (J3010) As Ordered ONE (07:54)
[2018-09-10] MEDS ORDERED: ONDANSETRON 4MG/2ML VIAL (J2405) As Ordered ONE (07:54)
[2018-09-10] MEDS ORDERED: PROPOFOL 200 MG/20 ML VIAL As Ordered ONE (07:54)
[2018-09-10] MEDS ORDERED: LIDOCAINE 2% INJ 100 MG/5 ML SDV (FOR ANES.) As Ordered ONE (07:54)
[2018-09-10] MEDS ORDERED: MIDAZOLAM INJ 2 MG/2 ML VIAL (J2250) As Ordered ONE (07:54)
[2018-09-10] MEDS ORDERED: LevoFLOXacin(LEVAQUIN)500 MG/100 ML BAG (J1956) As Ordered ONE (08:27)
[2018-09-10] MEDS ORDERED: LevoFLOXacin IV 500 MG in APPROPRIATE DILUENT 1 EA IV ONE (08:30)
[2018-09-10] MEDS ORDERED: HYDROmorphone HCL 2 MG/ML 1ML VIAL (J1170) As Ordered ONE (08:41)
[2018-09-10] MEDS ORDERED: SUGAMMADEX SODIUM 500 MG/5 ML VIAL (BRIDION) As Ordered ONE (08:57)
[2018-09-10] MEDS ORDERED: KETOROLAC 60 MG/2 ML VIAL (J1885) As Ordered ONE (10:17)
[2018-09-10] MEDS ORDERED: PHENYLephrine HCL 500 MCG/5 ML (100MCG/ML) SYRINGE (J2370) As Ordered ONE (10:19)
[2018-09-10] MEDS ORDERED: BUPIVACAINE LIPOSOME/PF 1.3% 20ML VIAL (13.3MG/ML)(EXPAREL)(C9290 PER1MG) As Ordered ONE (10:27)
[2018-09-10] MEDS ORDERED: BUPIVACAINE HCL 0.25% 10 ML VIAL As Ordered ONE (10:27)
[2018-09-10] MEDS ORDERED: ONDANSETRON 4MG/2ML VIAL (J2405) IV PRN (11:30)
[2018-09-10] MEDS ORDERED: fentaNYL 100 MCG/2 ML INJECTION (J3010) IV PRN (11:30)
[2018-09-10] MEDS ORDERED: NORCO, ANEXSIA 5/325MG TABLET (HYDROcodone/ACETAMINOPHEN) PO PRN (11:30)
[2018-09-10] MEDS ORDERED: LR 1,000 ML IV SCH (11:30)
[2018-09-10] MEDS ORDERED: NORCO, ANEXSIA 5/325MG TABLET (HYDROcodone/ACETAMINOPHEN) As Ordered ONE (11:38)
[2018-09-10] MEDS: ALVIMOPAN 12 MG CAPSULE (ENTEREG) PO SCH ×2 (13:20→20:43)
[2018-09-10] MEDS: PANTOPRAZOLE 40MG INJ (PROTONIX) (C9113) IV SCH (13:21)
[2018-09-10] MEDS: KCL 40MEQ IN D5/0.45NS 1000ML 1,000 ML IV SCH ×2 (13:21→22:56)
[2018-09-10] MEDS: KETOROLAC 30 MG/ML VIAL (J1885) IV PRN ×2 (16:41→23:02)
[2018-09-10] MEDS: NORCO, ANEXSIA 5/325MG TABLET (HYDROcodone/ACETAMINOPHEN) PO PRN (18:53)
[2018-09-10] MEDS: PROMETHAZINE INJ 25 MG/ML VIAL (J2550) IV PRN ×2 (20:43→22:56)
[2018-09-11] VITALS: BP 114/57
[2018-09-11 04:00] VITALS: BP 99/55
[2018-09-11] MEDS: NORCO, ANEXSIA 5/325MG TABLET (HYDROcodone/ACETAMINOPHEN) PO PRN (04:30)
[2018-09-11 07:05] LABS: HEMATOCRIT 31.7 % (36.0-47.0); MEAN CORPUSCULAR HEMOGLOBIN 30.6 pg (27.0-33.0); MEAN CORPUSCULAR HGB CONC 33.8 g/dl (32.0-36.5); MEAN CORPUSCULAR VOLUME 90.6 fl (80.0-96.0); PLATELET COUNT, AUTOMATED 261 10^3/uL (150-450)
[2018-09-11 07:22] LABS: HEMOGLOBIN 10.7 g/dl (12.0-15.5)
[2018-09-11 07:36] LABS: BLOOD UREA NITROGEN 5 MG/DL (7-18); CALCIUM LEVEL 7.6 MG/DL (8.5-10.1); CARBON DIOXIDE LEVEL 24 MEQ/L (21-32); CHLORIDE LEVEL 110 MEQ/L (98-107); CREATININE FOR GFR 0.67 MG/DL (0.55-1.30); GLOMERULAR FILTRATION RATE > 60.0 (>58); GLUCOSE, FASTING 112 MG/DL (70-100); POTASSIUM SERUM 4.1 MEQ/L (3.5-5.1); SODIUM LEVEL 140 MEQ/L (136-145)
[2018-09-11 08:00] VITALS: BP 122/62
[2018-09-11] MEDS: ALVIMOPAN 12 MG CAPSULE (ENTEREG) PO SCH ×2 (08:30→21:08)
[2018-09-11] MEDS: KCL 40MEQ IN D5/0.45NS 1000ML 1,000 ML IV SCH ×2 (08:30→17:03)
[2018-09-11] MEDS: PANTOPRAZOLE 40MG INJ (PROTONIX) (C9113) IV SCH (08:30)
[2018-09-11] MEDS: KETOROLAC 30 MG/ML VIAL (J1885) IV PRN ×2 (10:53→17:02)
[2018-09-11 12:00] VITALS: BP 120/56
[2018-09-11 16:00] VITALS: BP 127/60
[2018-09-11 20:00] VITALS: BP 120/58
[2018-09-12] VITALS: BP 107/57
[2018-09-12] MEDS: KCL 40MEQ IN D5/0.45NS 1000ML 1,000 ML IV SCH (03:58)
[2018-09-12] MEDS: NORCO, ANEXSIA 5/325MG TABLET (HYDROcodone/ACETAMINOPHEN) PO PRN ×4 (03:59→23:36)
[2018-09-12 04:00] VITALS: BP 124/56
[2018-09-12 07:13] LABS: HEMATOCRIT 34.6 % (36.0-47.0); HEMOGLOBIN 11.5 g/dl (12.0-15.5); MEAN CORPUSCULAR HEMOGLOBIN 30.3 pg (27.0-33.0); MEAN CORPUSCULAR HGB CONC 33.2 g/dl (32.0-36.5); MEAN CORPUSCULAR VOLUME 91.1 fl (80.0-96.0); PLATELET COUNT, AUTOMATED 257 10^3/uL (150-450); WHITE BLOOD COUNT 7.3 10^3/uL (4.0-10.0)
[2018-09-12 07:47] LABS: BLOOD UREA NITROGEN 5 MG/DL (7-18); CALCIUM LEVEL 7.9 MG/DL (8.5-10.1); CARBON DIOXIDE LEVEL 24 MEQ/L (21-32); CHLORIDE LEVEL 110 MEQ/L (98-107); CREATININE FOR GFR 0.61 MG/DL (0.55-1.30); GLOMERULAR FILTRATION RATE > 60.0 (>58); GLUCOSE, FASTING 101 MG/DL (70-100); POTASSIUM SERUM 4.1 MEQ/L (3.5-5.1); SODIUM LEVEL 138 MEQ/L (136-145)
[2018-09-12 08:00] VITALS: BP 121/62
[2018-09-12] MEDS: KETOROLAC 30 MG/ML VIAL (J1885) IV PRN (09:22)
[2018-09-12] MEDS: PANTOPRAZOLE 40MG INJ (PROTONIX) (C9113) IV SCH (09:22)
[2018-09-12] MEDS: ALVIMOPAN 12 MG CAPSULE (ENTEREG) PO SCH ×2 (09:23→20:07)
[2018-09-12 12:00] VITALS: BP 127/58
[2018-09-12 16:00] VITALS: BP 137/62
[2018-09-12 20:00] VITALS: BP 107/51
--- NOTE | 2018-09-12 21:41 | IPN ---
DATE: 09/12/2018 Subjectively, the patient has been doing well. She had numerous bouts of flatus overnight and has been having more today. He has had no nausea, no vomiting and no fevers or chills. No bowel movement as of yet, however. However, states that her abdominal pain has resolved since her laparoscopic lysis of adhesions. On her physical exam dressings are clean, dry, no erythema, drainage or discharge is appreciated. IMPRESSION AND PLAN The patient is status post laparoscopic lysis of adhesions with a conversion to a small open laparotomy for the rest of the lysis of adhesions. Seems to be doing well at this point and my recommendation is that she progress to a clear liquid diet. Will Hep-Lock her IV and if she is doing well with the clear liquids will progress her to a regular diet. If she tolerates regular diet tomorrow can be discharged either later on in the day tomorrow or the following day depending on how she is doing overall. At this point, seems to be making some good progress.
[2018-09-13] VITALS: BP 127/60
[2018-09-13 04:00] VITALS: BP 119/58
[2018-09-13] MEDS: NORCO, ANEXSIA 5/325MG TABLET (HYDROcodone/ACETAMINOPHEN) PO PRN (04:20)
[2018-09-13 08:15] VITALS: BP 103/53
[2018-09-13 08:19] LABS: HEMOGLOBIN 12.3 g/dl (12.0-15.5); MEAN CORPUSCULAR HEMOGLOBIN 29.9 pg (27.0-33.0); MEAN CORPUSCULAR HGB CONC 34.2 g/dl (32.0-36.5); MEAN CORPUSCULAR VOLUME 87.4 fl (80.0-96.0); PLATELET COUNT, AUTOMATED 296 10^3/uL (150-450); RED BLOOD COUNT 4.12 10^6/uL (4.00-5.40); WHITE BLOOD COUNT 6.6 10^3/uL (4.0-10.0)
[2018-09-13 08:40] LABS: BLOOD UREA NITROGEN 8 MG/DL (7-18); CALCIUM LEVEL 8.8 MG/DL (8.5-10.1); CARBON DIOXIDE LEVEL 22 MEQ/L (21-32); CHLORIDE LEVEL 104 MEQ/L (98-107); CREATININE FOR GFR 0.61 MG/DL (0.55-1.30); GLOMERULAR FILTRATION RATE > 60.0 (>58); GLUCOSE, FASTING 81 MG/DL (70-100); POTASSIUM SERUM 3.5 MEQ/L (3.5-5.1); SODIUM LEVEL 136 MEQ/L (136-145)
[2018-09-13] MEDS: ALVIMOPAN 12 MG CAPSULE (ENTEREG) PO SCH (08:45)
[2018-09-13] MEDS: PANTOPRAZOLE 40MG INJ (PROTONIX) (C9113) IV SCH (08:45)
[2018-09-13] MEDS ORDERED: NORCOTAB PO (10:05)
--- NOTE | 2018-10-09 05:12 | DSES ---
DATE OF ADMISSION: 09/08/2018 DATE OF DISCHARGE: 09/13/2018 PRINCIPAL DIAGNOSIS: Recurrent small-bowel obstruction. PROCEDURES PERFORMED: Laparoscopic lysis of adhesions and open laparotomy with lysis of adhesions. BRIEF HISTORY OF PRESENT ILLNESS: The patient is a 48-year-old female who has had several episodes of admissions for right-sided abdominal pain, discomfort small-bowel obstructions, enteritis and inflammatory changes in the right side concerning for possible inflammatory bowel disease. However, I anticipate these were probably recurrent infections and after proceeding with her operative intervention I anticipate that these recurrent infections caused this significant scarring and adhesions that caused the small bowel obstruction. In any case she was admitted with the above diagnosis of small bowel obstruction with nausea, vomiting, abdominal distension crampy abdominal pain and was kept nothing by mouth and nasogastric (NG) tube for decompression and was taken to the operating room where she underwent operative intervention with lysis of adhesions. Postoperatively the patient seemed to do well but did have a distended bowel for a day or two as expected with the significant amount of dissection performed and eventually over the next several days she resolved her normal postoperative ileus and was started on a clear liquid diet, advanced to regular diet and eventually discharged to home on a regular diet. She had good pain control with oral pain meds and went home on her usual medications which include calcium carbonate, dicyclomine, MiraLax, ranitidine, Carafate and also had [place] ordered for pain as needed. She is to follow up in the office in 1-2 weeks and follow up with her primary care as needed.
--- NOTE | 2018-10-09 07:07 | RO ---
DATE OF PROCEDURE: 09/10/2018 PREOPERATIVE DIAGNOSIS: Recurrent small bowel obstruction. POSTOPERATIVE DIAGNOSIS: Recurrent small bowel obstruction. PROCEDURE: 1. Diagnostic laparoscopy with lysis of adhesions. 2. Exploratory laparotomy with lysis of adhesions. SURGEON: Edward Laughlin Jr., MD RESEARCH AGRICULTURAL ENGINEER: ANESTHESIA: General endotracheal anesthesia. ESTIMATED BLOOD LOSS: Minimal. FLUIDS: Crystalloid. PROCEDURE SUMMARY: The patient was brought to the operating room and was given general anesthesia. After adequate anesthesia and preoperative antibiotics were given, the patient was prepped and draped in the usual sterile fashion. Next, a left subcostal 5 mm trocar was placed after Veress insufflation to 15 mm of pressure was obtained and then left lower quadrant and midline 5 mm trocars were placed. Once these were placed, there was some dilated bowel mostly on the right side of the abdomen, but the small bowel was seen proximally and then followed distally, but what was noticed was that there was a great deal of adhesions throughout the pelvis on the right-hand side and this is where the suggestion of the obstruction was on CT scan. Unfortunately, there was literally a matting of the small bowel with bowel to bowel scarring in this area with a bunch of sharp dissection with laparoscopic scissors, as well as using the Harmonic scalpel, loose areolar tissue in between some of bowel loops as well. Eventually, I was able to free up of fair bit of this area but unfortunately it was still was so matted after quite a while of performing laparoscopic lysis of adhesions, I decided that if I could mobilize this adequately out of the right side that I can make a small midline laparotomy and mobilize the entirety of the small bowel and make sure that there is not some sort of intrinsic stenosis. Thus, a small midline incision was made and electrocautery was used cut through dermis, underlying subcutaneous tissue down through the fascia and into the peritoneum. The small bowel was able to be mobilized and what had been happening was that this matted portion of the distal jejunum small and ileum was flopping back and forth similar to a volvulus right on the mesentery. Unfortunately without mobilizing this entire matted component, it still flopped back and forth and twisted the distal portion of the ileum. Thus this was delivered up to the incision and using sharp dissection between the small adhesions, eventually I was able to mobilize this area quite nicely. There were a couple serosal tears which were inverted with some #3-0 Vicryl, but otherwise this went rather well. No specific stenosis was appreciated that had not been remedied by lysis of adhesions and I followed this all the way to the ileocecal valve and up to the ligament of Treitz. Once this was adequately mobilized, I ran the bowels a couple of more times to make sure that I had gotten all the adhesions that were necessary to have free flowing fluid through this area, the midline was closed with running PDS and adriana were used to approximate the skin. Dry sterile dressing was applied. The patient was awakened, extubated, brought to recovery room awake, alert, hemodynamically stable. Sponge and needle counts were correct times two.
== END 2018-09-13 10:50 | disposition home or self-care (01) | DRG 224 ==
LOC: M ED 09:13 → M ED INP 13:47 → M PED 15:50
PROVIDERS: ADMIT Surgery; ATTEND Surgery
PROC: 0DN80ZZ Release Small Intestine, Open Approach (ICD-10-PCS; principal; 2018-09-10 08:00)
DX: K56.50 Intestinal adhesions [bands], unspecified as to partial versus complete obstruction (principal)

== ENCOUNTER 2019-08-03 15:14 | Emergency (ER) | payer BC, OTHER ==
[~2019-08-03] VITALS: Ht 154.9 cm; Wt 71.8 kg
[~2019-08-03 15:14] MED LIST changes: +DICY1CAP8 PO; +HYDR-3715 PO; +MIRA3350 PO; +SUCR1TAB56 PO
[2019-08-03] MEDS ORDERED: IBUPROFEN 600 MG TAB PO ONE (17:45)
[2019-08-03] MEDS ORDERED: METHOCARBAMOL 750 MG TAB PO ONE (17:45)
--- NOTE | 2019-08-03 18:14 | REP ---
Left shoulder series: Three views. History: Injury. Pain at the AC joint and biceps insertion. Findings: The glenohumeral and acromioclavicular joints are normally aligned. No fracture is seen. There is minimal spurring at the distal clavicle. Impression: Minimal AC joint spurring. Otherwise negative. No traumatic abnormality noted. Electronically Signed by Sukhdeep Araya MD 08/03/2019 06:43 P
[2019-08-03] MEDS ORDERED: ONDANSETRON 4 MG ORAL DISINTEGRATING TAB (Q0162 PER 1MG) PO ONE (18:30)
[2019-08-03] MEDS ORDERED: METOCLOPRAMIDE 10 MG TAB PO ONE (19:15)
[2019-08-03] MEDS ORDERED: ONDANSETRON 4MG/2ML VIAL (J2405) IV ONE (20:30)
[2019-08-03] MEDS ORDERED: NS 1,000 ML IV ONE (20:30)
[2019-08-03] MEDS ORDERED: METOCLOPRAMIDE INJ 10MG/2ML VIAL (J2765) IV ONE (21:15)
[2019-08-03] MEDS ORDERED: ONDA4TAB6 PO (21:57)
[2019-08-03] MEDS ORDERED: ANEC4CRE3 TOP (21:59)
[2019-08-03 22:05] VITALS: BP 162/82
--- NOTE | 2019-08-04 09:18 | REP ---
REPEAT DICTATION SOFT-TISSUE ULTRASOUND LEFT SHOULDER REGION: HISTORY: Lifting injury, felt a pop. Question biceps tendon rupture. Preliminary report is provided at the time of examination by virtual radiology. FINDINGS: Scanning in the area of biceps tendon and in the region of the patient's symptoms shows no evidence of abnormal fluid collection or hematoma in the underlying skeletal musculature. No musculotendinous discontinuity is appreciated. The biceps tendon is believed to be visible in the bony bicipital groove on transverse images. The provided longitudinal images are difficult to evaluate. IMPRESSION: No abnormality seen. If symptoms persist, MRI scanning could be considered. Electronically Signed by Sukhdeep Araya MD 08/04/2019 09:32 A
--- NOTE | 2019-08-05 17:27 | ED PDOC ---
Post-Departure Follow-Up [facility] faxed formal report of extremity us for fu Jayce Salamanca MD Aug 05, 2019 17:27
== END 2019-08-03 22:26 | disposition home or self-care (01) ==
LOC: M ED 15:14
DX: M75.22 Bicipital tendinitis, left shoulder (principal); X50.0XXA Overexertion from strenuous movement or load, initial encounter; Y92.129 Unspecified place in nursing home as the place of occurrence of the external cause; Y99.0 Civilian activity done for income or pay; R11.2 Nausea with vomiting, unspecified; M25.712 Osteophyte, left shoulder; Z91.018 Allergy to other foods; Z88.0 Allergy status to penicillin; Z88.9 Allergy status to unspecified drugs, medicaments and biological substances; Z91.040 Latex allergy status; Z79.83 Long term (current) use of bisphosphonates; Z79.899 Other long term (current) drug therapy
CPT/HCPCS: 73030; 76882; 96361; 96374; 96375; 99284; J2405; J2765; Q0162

== ENCOUNTER 2019-12-30 13:38 | Emergency (ER) | payer OTHER ==
[~2019-12-30] VITALS: Ht 154.9 cm; Wt 72.7 kg
[~2019-12-30 13:38] MED LIST changes: +ANEC4CRE3 TOP; +CYCL-707 PO; -CYCL10TA PO; +ONDA-83; +ONDA-83 PO; -ONDA4TAB5; -ONDA4TAB5 PO; +ONDA4TAB6 PO
[2019-12-30 13:39] VITALS: BP 142/84
[2019-12-30] MEDS ORDERED: ONDA4TAB6 PO (14:49)
--- NOTE | 2019-12-30 14:56 | REP ---
CT BRAIN WITHOUT CONTRAST: CT brain performed without IV contrast. Coronal reconstruction images are performed. Ventricles are normal in size and position with no midline shift or mass effect. Sher-white differentiation is well maintained. There is no acute hemorrhage or extra-axial fluid collection. Bone window examination demonstrates no fracture. Visualized paranasal sinuses and mastoid air cells are clear. IMPRESSION: Negative noncontrast CT brain. Electronically Signed by Ant Sher MD 12/30/2019 03:24 P
== END 2019-12-30 14:55 | disposition home or self-care (01) ==
LOC: M ED 13:38
DX: S06.0X0A Concussion without loss of consciousness, initial encounter (principal); W22.8XXA Striking against or struck by other objects, initial encounter; Y92.230 Patient room in hospital as the place of occurrence of the external cause; Y99.0 Civilian activity done for income or pay; M54.9 Dorsalgia, unspecified; N80.9 Endometriosis, unspecified; Z87.19 Personal history of other diseases of the digestive system; Z90.49 Acquired absence of other specified parts of digestive tract; Z98.51 Tubal ligation status; Z98.890 Other specified postprocedural states; Z88.0 Allergy status to penicillin; Z88.8 Allergy status to other drugs, medicaments and biological substances; Z91.040 Latex allergy status; Z91.018 Allergy to other foods

== ENCOUNTER → 2020-06-10 | Outpatient (CLI) | payer SELFPAY | LOC: M LABSMTC 11:03 | PROVIDERS: ATTEND Pediatrics | DX: Z20.828 Contact with and (suspected) exposure to other viral communicable diseases (principal) ==

== ENCOUNTER → 2020-07-08 | Outpatient (REF) | payer SELFPAY | LOC: EDSTATUS 10:55 → M LABSMTC 12:56 | PROVIDERS: ATTEND Pediatrics | DX: Z11.59 Encounter for screening for other viral diseases (principal) ==

== ENCOUNTER → 2020-08-07 | Outpatient (REF) | payer SELFPAY | LOC: EDSTATUS 09:50 → M LABSMTC 09:57 | PROVIDERS: ATTEND Family Medicine | DX: Z20.822 Contact with and (suspected) exposure to COVID-19 (principal) ==

== ENCOUNTER 2021-01-06 10:47 | Emergency (ER) | payer OTHER, SELFPAY ==
[~2021-01-06] VITALS: Ht 154.9 cm; Wt 71.4 kg
[2021-01-06 10:53] VITALS: BP 129/64
--- NOTE | 2021-01-06 11:23 | REP ---
INDICATION: injury, pain COMPARISON: 08/03/2019. TECHNIQUE: Three views left shoulder. FINDINGS: There is no evidence of acute fracture, dislocation, or intrinsic bone disease. IMPRESSION: No fracture or dislocation. <Electronically signed by Ant Sher > 01/06/21 0028
== END 2021-01-06 12:46 | disposition home or self-care (01) ==
LOC: M ED 10:47
DX: S43.402A Unspecified sprain of left shoulder joint, initial encounter (principal); Y92.9 Unspecified place or not applicable; Y93.F9 Activity, other caregiving; Y99.0 Civilian activity done for income or pay; Z88.0 Allergy status to penicillin; Z88.8 Allergy status to other drugs, medicaments and biological substances; Z91.018 Allergy to other foods; Z91.040 Latex allergy status

== ENCOUNTER → 2021-01-24 | Outpatient (CLI) | payer OTHER ==
--- NOTE | 2021-01-26 08:38 | REP ---
INDICATION: LT SHOULDER PAIN. COMPARISON: Comparison left shoulder radiographs are from January 06, 2021.. TECHNIQUE: Axial, oblique coronal, and oblique sagittal imaging planes utilized. T1 and T2 weighted scans are included with without fat saturation. FINDINGS: Glenohumeral and acromioclavicular joints are normally aligned. There is subtle hypertrophy and some joint fluid at the acromioclavicular joint consistent with minimal AC joint osteoarthritis. There is a tiny sliver of subacromial subdeltoid bursal fluid. Mild subcortical cyst formation is seen in the superolateral humeral head. No labral cartilage disruption is appreciated. There is mild swelling and increased signal intensity in the distal supraspinatus tendon consistent with tendinosis. There is no focal cuff tear. Subscapularis and infraspinatus tendons appear intact. Biceps tendon is seen within the bony bicipital groove. There is some tendinosis of the proximal biceps tendon near its genu. No juxta-articular cyst or mass is seen. Leigha articular skeletal muscle signal intensity and contours are normal. IMPRESSION: Minimal hypertrophy and joint fluid at the AC joint. Subacromial subdeltoid bursal effusion. Tendinosis in the supraspinatus and biceps tendons. <Electronically signed by Philippe Araya > 01/26/21 [id number]
== END ==
LOC: M RAD 09:33
PROVIDERS: ATTEND Orthopaedic Surgery Sports Medicine
DX: M25.512 Pain in left shoulder (principal)

== ENCOUNTER 2021-02-25 10:09 | Outpatient (RCR) | payer OTHER | END 2021-02-28 | LOC: M PT 10:09 | PROVIDERS: ATTEND Orthopaedic Surgery Sports Medicine | DX: M75.42 Impingement syndrome of left shoulder (principal) ==

== ENCOUNTER 2021-03-25 15:14 | Outpatient (RCR) | payer OTHER | END 2021-03-31 | LOC: M PT 15:14 | PROVIDERS: ATTEND Orthopaedic Surgery Sports Medicine | DX: M75.42 Impingement syndrome of left shoulder (principal) ==

== ENCOUNTER 2021-04-17 14:30 | Outpatient (RCR) | payer OTHER | END 2021-04-30 | LOC: M PT 14:30 | PROVIDERS: ATTEND Orthopaedic Surgery Sports Medicine | DX: M75.42 Impingement syndrome of left shoulder (principal) ==

== ENCOUNTER → 2021-05-14 | Outpatient (REF) | LOC: M LABSMTC 09:12 | PROVIDERS: ATTEND Family Medicine | DX: Z20.822 Contact with and (suspected) exposure to COVID-19 (principal) ==

== ENCOUNTER → 2021-07-06 | Outpatient (REF) | payer BC | LOC: M SFHCADAM 13:55 | PROVIDERS: ATTEND Family Medicine | DX: R05.9 Cough, unspecified (principal) ==

== ENCOUNTER → 2021-07-07 | Outpatient (CLI) | payer BC ==
[2021-07-07 10:27] LABS: BASO % 0.2 % (0.0-1.0); EOS # 0.3 10^3/uL (0.0-0.5); EOS % 3.2 % (0.0-3.0); HEMATOCRIT 40.1 % (36.0-47.0); HEMOGLOBIN 13.4 g/dl (12.0-15.5); LYMPH % 35.2 % (24.0-44.0); MEAN CORPUSCULAR HEMOGLOBIN 30.2 pg (27.0-33.0); MEAN CORPUSCULAR HGB CONC 33.4 g/dl (32.0-36.5); MEAN CORPUSCULAR VOLUME 90.5 fl (80.0-96.0); MONO # 0.8 10^3/uL (0.0-0.8); MONO % 9.7 % (2.0-8.0); NEUTROPHILS # 4.4 10^3/uL (1.5-8.5); NEUTROPHILS % 51.2 % (36.0-66.0); PLATELET COUNT, AUTOMATED 332 10^3/uL (150-450); RED BLOOD COUNT 4.43 10^6/uL (4.00-5.40); WHITE BLOOD COUNT 8.6 10^3/uL (4.0-10.0)
[2021-07-07 10:57] LABS: ALBUMIN 3.8 GM/DL (3.2-5.2); ALT/SGPT 47 U/L (12-78); BILIRUBIN,TOTAL 0.2 MG/DL (0.2-1.0); BLOOD UREA NITROGEN 13 MG/DL (7-18); CALCIUM LEVEL 9.1 MG/DL (8.5-10.1); CARBON DIOXIDE LEVEL 29 MEQ/L (21-32); CHLORIDE LEVEL 105 MEQ/L (98-107); CREATININE FOR GFR 0.74 MG/DL (0.55-1.30); FREE T4 0.73 NG/DL (0.76-1.46); GLOMERULAR FILTRATION RATE > 60.0 (>51); GLUCOSE, FASTING 102 MG/DL (70-100); SODIUM LEVEL 138 MEQ/L (136-145); TOTAL PROTEIN 7.1 GM/DL (6.4-8.2)
[2021-07-07 11:36] LABS: HEMOGLOBIN A1c 5.4 %
--- NOTE | 2021-07-07 14:10 | REP ---
INDICATION: COUGH, UNSPECIFIED COMPARISON: 02/18/2016 TECHNIQUE: PA and lateral. FINDINGS: The mediastinum and cardiac silhouette are normal. The lung adame are clear and without acute consolidation, effusion, or pneumothorax. The skeletal structures are intact and normal. IMPRESSION: No acute cardiopulmonary process. <Electronically signed by Scott Samuels > 07/07/21 [id number]
== END ==
LOC: M PLAIMG 07:53
PROVIDERS: ATTEND Family Medicine
DX: R05.9 Cough, unspecified (principal)

== ENCOUNTER → 2021-08-24 | Outpatient (CLI) | payer BC | LOC: M PLALAB 07:39 | PROVIDERS: ATTEND Family Medicine | DX: E03.9 Hypothyroidism, unspecified (principal) ==

== ENCOUNTER → 2021-11-17 | Outpatient (REF) ==
[2021-11-17 10:01] LABS: RSV AMPLIFICATION NEGATIVE (NEGATIVE)
== END ==
LOC: M EMP 07:45
PROVIDERS: ATTEND Family Medicine
DX: Z11.52 Encounter for screening for COVID-19 (principal)

== ENCOUNTER → 2021-12-01 | Outpatient (CLI) | payer OTHER | LOC: M PLAIMG 06:35 | PROVIDERS: ATTEND Orthopaedic Surgery | DX: M75.42 Impingement syndrome of left shoulder (principal) ==

== ENCOUNTER → 2022-05-14 | Outpatient (CLI) | payer BC | LOC: M CARPUL 13:27 | PROVIDERS: ATTEND Family Medicine | DX: R06.09 Other forms of dyspnea (principal) ==

== ENCOUNTER → 2022-10-18 | Outpatient (REF) | LOC: M LABSMTC 08:57 | PROVIDERS: ATTEND Family Medicine | DX: Z11.52 Encounter for screening for COVID-19 (principal) ==

== ENCOUNTER → 2022-10-22 | Outpatient (REF) | LOC: M LABSMTC 08:06 | PROVIDERS: ATTEND Family Medicine | DX: Z11.52 Encounter for screening for COVID-19 (principal) ==

== ENCOUNTER → 2022-10-25 | Outpatient (REF) ==
[2022-10-25 14:49] LABS: RSV AMPLIFICATION NEGATIVE (NEGATIVE)
== END ==
LOC: M LABSMTC 09:54
PROVIDERS: ATTEND Family Medicine
DX: Z11.52 Encounter for screening for COVID-19 (principal)

== ENCOUNTER → 2022-11-12 | Outpatient (CLI) | payer BC ==
[2022-11-12 14:02] LABS: BASO % 0.2 % (0.0-1.0); EOS # 0.2 10^3/uL (0.0-0.5); EOS % 2.1 % (0.0-3.0); HEMATOCRIT 40.8 % (36.0-47.0); HEMOGLOBIN 13.3 g/dl (12.0-15.5); LYMPH # 3.5 10^3/uL (1.5-5.0); MEAN CORPUSCULAR HEMOGLOBIN 29.9 pg (27.0-33.0); MEAN CORPUSCULAR HGB CONC 32.6 g/dl (32.0-36.5); MEAN CORPUSCULAR VOLUME 91.7 fl (80.0-96.0); MONO # 0.7 10^3/uL (0.0-0.8); MONO % 7.9 % (2.0-8.0); NEUTROPHILS # 4.5 10^3/uL (1.5-8.5); NEUTROPHILS % 50.5 % (36.0-66.0); PLATELET COUNT, AUTOMATED 316 10^3/uL (150-450); RED BLOOD COUNT 4.45 10^6/uL (4.00-5.40)
[2022-11-12 14:28] LABS: ALBUMIN 3.6 G/DL (3.2-5.2); ALKALINE PHOSPHATASE 109 U/L (46-116); ALT/SGPT 60 U/L (7.0-40); AST/SGOT 35 U/L (<34); BILIRUBIN,TOTAL 0.3 MG/DL (0.3-1.2); BLOOD UREA NITROGEN 20 MG/DL (9-23); CALCIUM LEVEL 9.9 MG/DL (8.5-10.1); CARBON DIOXIDE LEVEL 29 MMOL/L (20-31); CHLORIDE LEVEL 105 MMOL/L (98-107); CREATININE FOR GFR 0.82 MG/DL (0.55-1.30); GLOMERULAR FILTRATION RATE > 60.0 (>51); GLUCOSE, FASTING 104 MG/DL (60-100); POTASSIUM SERUM 3.9 MMOL/L (3.5-5.1); SODIUM LEVEL 141 MMOL/L (136-145); TOTAL 25(OH) VITAMIN D 21.5 NG/ML (20.0-100.0); TOTAL PROTEIN 6.8 G/DL (5.7-8.2)
[2022-11-12 14:29] LABS: FOLLICLE STIMULATING HORMONE 51.9 mIU/ML; LUTEINIZING HORMONE 36.8 mIU/ML
[2022-11-12 14:30] LABS: FREE T4 1.14 NG/DL (0.89-1.76)
[2022-11-13 18:09] LABS: TESTOSTERONE FREE (DIRECT) 0.8 pg/mL (0.0-4.2)
== END ==
LOC: M PLALAB 11:10
PROVIDERS: ATTEND Physician Assistant
DX: E03.9 Hypothyroidism, unspecified (principal)

== ENCOUNTER → 2023-03-08 | Outpatient (CLI) | payer BC | LOC: M WHC 08:42 | PROVIDERS: ATTEND Physician Assistant | DX: Z12.31 Encounter for screening mammogram for malignant neoplasm of breast (principal) ==

== ENCOUNTER → 2023-03-09 | Outpatient (CLI) | payer BC | LOC: M WHC 11:28 | PROVIDERS: ATTEND Physician Assistant | DX: Z12.31 Encounter for screening mammogram for malignant neoplasm of breast (principal) | CPT/HCPCS: 76641; 77066; G0279 ==

== ENCOUNTER → 2023-03-11 | Outpatient (REF) | payer BC ==
[2023-03-11 11:20] LABS: BASO % 0.2 % (0.0-1.0); EOS # 0.2 10^3/uL (0.0-0.5); HEMATOCRIT 41.2 % (36.0-47.0); HEMOGLOBIN 13.6 g/dl (12.0-15.5); LYMPH # 2.8 10^3/uL (1.5-5.0); LYMPH % 34.5 % (24.0-44.0); MEAN CORPUSCULAR HEMOGLOBIN 29.8 pg (27.0-33.0); MEAN CORPUSCULAR VOLUME 90.4 fl (80.0-96.0); MONO # 0.8 10^3/uL (0.0-0.8); NEUTROPHILS # 4.3 10^3/uL (1.5-8.5); NEUTROPHILS % 53.1 % (36.0-66.0); PLATELET COUNT, AUTOMATED 360 10^3/uL (150-450); RED BLOOD COUNT 4.56 10^6/uL (4.00-5.40); WHITE BLOOD COUNT 8.2 10^3/uL (4.0-10.0)
[2023-03-11 11:35] LABS: HEMOGLOBIN A1c 6.1 % (4.0-6.0)
[2023-03-11 11:43] LABS: TOTAL 25(OH) VITAMIN D 29.1 NG/ML (20.0-100.0)
[2023-03-11 11:45] LABS: FREE T4 1.27 NG/DL (0.89-1.76); THYROID STIMULATING HORMONE 2.506 uIU/ML (0.55-4.78)
[2023-03-11 11:49] LABS: ALBUMIN 3.9 G/DL (3.2-5.2); ALKALINE PHOSPHATASE 100 U/L (46-116); ALT/SGPT 59 U/L (7.0-40); AST/SGOT 35 U/L (<34); BILIRUBIN,TOTAL 0.5 MG/DL (0.3-1.2); BLOOD UREA NITROGEN 13 MG/DL (9-23); CALCIUM LEVEL 9.2 MG/DL (8.5-10.1); CARBON DIOXIDE LEVEL 28 MMOL/L (20-31); CHLORIDE LEVEL 103 MMOL/L (98-107); CHOLESTEROL LEVEL 193 MG/DL (<200); CHOLESTEROL RISK RATIO 3.45 (<5); GLOMERULAR FILTRATION RATE > 60.0 (>51); GLUCOSE, FASTING 94 MG/DL (60-100); HDL CHOLESTEROL 55.8 MG/DL (>40); LDL CHOLESTEROL 115.6 MG/DL (<100); MAGNESIUM LEVEL 2.1 MG/DL (1.8-2.4); NON-HDL-C 137.2 MG/DL; POTASSIUM SERUM 4.7 MMOL/L (3.5-5.1); SODIUM LEVEL 136 MMOL/L (136-145); TOTAL PROTEIN 7.1 G/DL (5.7-8.2); TRIGLYCERIDES LEVEL 108 MG/DL (<150); VITAMIN B12 LEVEL 387 PG/ML (211-911)
== END ==
LOC: M LAB REF 10:04
PROVIDERS: ATTEND Physician Assistant
DX: E03.9 Hypothyroidism, unspecified (principal); E66.9 Obesity, unspecified; R53.83 Other fatigue; R60.0 Localized edema

== ENCOUNTER → 2023-04-20 | Outpatient (REF) | LOC: M EMP 10:55 | PROVIDERS: ATTEND Family Medicine | DX: Z11.52 Encounter for screening for COVID-19 (principal) ==

== ENCOUNTER → 2023-11-17 | Outpatient (REF) | LOC: M EMP 08:31 | PROVIDERS: ATTEND Family Medicine | DX: Z20.822 Contact with and (suspected) exposure to COVID-19 (principal) ==

== ENCOUNTER → 2023-12-02 | Outpatient (CLI) | payer BC ==
[2023-12-02 12:49] LABS: BASO % 0.3 % (0.0-1.0); EOS # 0.1 10^3/uL (0.0-0.5); EOS % 1.6 % (0.0-3.0); HEMATOCRIT 44.8 % (36.0-47.0); HEMOGLOBIN 14.6 g/dl (12.0-15.5); LYMPH # 2.7 10^3/uL (1.5-5.0); LYMPH % 37.8 % (24.0-44.0); MEAN CORPUSCULAR HEMOGLOBIN 29.7 pg (27.0-33.0); MEAN CORPUSCULAR HGB CONC 32.6 g/dl (32.0-36.5); MEAN CORPUSCULAR VOLUME 91.2 fl (80.0-96.0); MONO # 0.6 10^3/uL (0.0-0.8); NEUTROPHILS # 3.6 10^3/uL (1.5-8.5); PLATELET COUNT, AUTOMATED 369 10^3/uL (150-450); RED BLOOD COUNT 4.91 10^6/uL (4.00-5.40)
[2023-12-02 12:55] LABS: ALBUMIN 4.3 G/DL (3.2-5.2); ALKALINE PHOSPHATASE 105 U/L (46-116); ALT/SGPT 45 U/L (7.0-40); AST/SGOT 33 U/L (<34); BILIRUBIN,TOTAL 0.5 MG/DL (0.3-1.2); BLOOD UREA NITROGEN 14 MG/DL (9-23); CARBON DIOXIDE LEVEL 31 MMOL/L (20-31); CHLORIDE LEVEL 100 MMOL/L (98-107); CHOLESTEROL LEVEL 179 MG/DL (<200); CHOLESTEROL RISK RATIO 3.42 (<5); GLOMERULAR FILTRATION RATE > 60.0 (>51); GLUCOSE, FASTING 98 MG/DL (60-100); HDL CHOLESTEROL 52.2 MG/DL (>40); LDL CHOLESTEROL 106.8 MG/DL (<100); NON-HDL-C 126.8 MG/DL; POTASSIUM SERUM 4.6 MMOL/L (3.5-5.1); SODIUM LEVEL 137 MMOL/L (136-145); TOTAL PROTEIN 7.4 G/DL (5.7-8.2); TRIGLYCERIDES LEVEL 100 MG/DL (<150)
[2023-12-02 12:57] LABS: FREE T4 1.52 NG/DL (0.89-1.76); THYROID STIMULATING HORMONE 1.264 uIU/ML (0.55-4.78)
[2023-12-02 13:05] LABS: HEMOGLOBIN A1c 5.4 % (4.0-6.0)
== END ==
LOC: M PLAIMG 08:19
PROVIDERS: ATTEND Physician Assistant
DX: E03.9 Hypothyroidism, unspecified (principal); Z13.220 Encounter for screening for lipoid disorders; R73.03 Prediabetes; M54.41 Lumbago with sciatica, right side

== ENCOUNTER → 2024-05-15 | Outpatient (REF) | payer BC ==
[~2024-05-15] MED LIST changes: +ONDA-282 PO; -ONDA4TAB6 PO
== END ==
LOC: M SFHCPLAZ 12:30
PROVIDERS: ATTEND Student in an Organized Health Care Education/Training Program
DX: J02.9 Acute pharyngitis, unspecified (principal)

== ENCOUNTER → 2024-05-30 | Outpatient (REF) | LOC: M EMP 11:57 | PROVIDERS: ATTEND Family Medicine | DX: Z11.52 Encounter for screening for COVID-19 (principal) ==

== ENCOUNTER → 2024-05-31 | Outpatient (REF) | LOC: M EMP 09:33 | PROVIDERS: ATTEND Family Medicine | DX: Z11.52 Encounter for screening for COVID-19 (principal) ==

== ENCOUNTER → 2024-06-05 | Outpatient (REF) | payer BC ==
[2024-06-05 10:59] LABS: BASO % 0.1 % (0.0-1.0); EOS # 0.1 10^3/uL (0.0-0.5); EOS % 1.6 % (0.0-3.0); HEMATOCRIT 44.5 % (36.0-47.0); HEMOGLOBIN 14.9 g/dl (12.0-15.5); LYMPH # 2.8 10^3/uL (1.5-5.0); LYMPH % 41.7 % (24.0-44.0); MEAN CORPUSCULAR HEMOGLOBIN 30.3 pg (27.0-33.0); MEAN CORPUSCULAR HGB CONC 33.5 g/dl (32.0-36.5); MEAN CORPUSCULAR VOLUME 90.6 fl (80.0-96.0); MONO # 0.6 10^3/uL (0.0-0.8); MONO % 8.6 % (2.0-8.0); NEUTROPHILS # 3.2 10^3/uL (1.5-8.5); NEUTROPHILS % 47.9 % (36.0-66.0); PLATELET COUNT, AUTOMATED 396 10^3/uL (150-450); RED BLOOD COUNT 4.91 10^6/uL (4.00-5.40); WHITE BLOOD COUNT 6.7 10^3/uL (4.0-10.0)
[2024-06-05 11:12] LABS: ALKALINE PHOSPHATASE 87 U/L (35-104); ALT/SGPT 22 U/L (7.0-40); AST/SGOT 16 U/L (<34); BILIRUBIN,TOTAL 0.5 MG/DL (0.3-1.2); BLOOD UREA NITROGEN 15 MG/DL (9-23); CALCIUM LEVEL 9.9 MG/DL (8.5-10.1); CARBON DIOXIDE LEVEL 29 MMOL/L (20-31); CHLORIDE LEVEL 105 MMOL/L (98-107); CHOLESTEROL LEVEL 195 MG/DL (<200); CHOLESTEROL RISK RATIO 3.24 (<5); CREATININE FOR GFR 0.78 MG/DL (0.55-1.30); GLOMERULAR FILTRATION RATE > 60.0 (>51); GLUCOSE, FASTING 91 MG/DL (60-100); HDL CHOLESTEROL 60.1 MG/DL (>40); LDL CHOLESTEROL 109.1 MG/DL (<100); NON-HDL-C 134.9 MG/DL; POTASSIUM SERUM 4.9 MMOL/L (3.5-5.1); SODIUM LEVEL 141 MMOL/L (136-145); TOTAL PROTEIN 7.4 G/DL (5.7-8.2); TRIGLYCERIDES LEVEL 129 MG/DL (<150)
[2024-06-05 11:15] LABS: THYROID STIMULATING HORMONE 1.882 uIU/ML (0.55-4.78)
[2024-06-05 11:16] LABS: HEMOGLOBIN A1c 5.4 % (4.0-6.0)
== END ==
LOC: M LABDRAWP 10:06
PROVIDERS: ATTEND Student in an Organized Health Care Education/Training Program
DX: E03.9 Hypothyroidism, unspecified (principal); Z13.220 Encounter for screening for lipoid disorders; R73.03 Prediabetes; E66.9 Obesity, unspecified

== ENCOUNTER → 2024-07-10 | Outpatient (CLI) | payer BC | LOC: M RAD 06:25 | PROVIDERS: ATTEND Student in an Organized Health Care Education/Training Program | DX: R42 Dizziness and giddiness (principal) ==

== ENCOUNTER → 2024-07-30 | Outpatient (CLI) | payer BC | LOC: M PLAIMG 09:18 | PROVIDERS: ATTEND Physician Assistant Medical | DX: M54.50 Low back pain, unspecified (principal) ==

== ENCOUNTER → 2024-08-07 | Outpatient (REF) | LOC: M EMP 14:35 | PROVIDERS: ATTEND Family Medicine | DX: Z11.52 Encounter for screening for COVID-19 (principal) ==

== ENCOUNTER → 2024-09-04 | Outpatient (REF) | payer BC | LOC: M SFHCPLAZ 14:35 | PROVIDERS: ATTEND Physician Assistant Medical | DX: J40 Bronchitis, not specified as acute or chronic (principal) ==

== ENCOUNTER → 2024-09-07 | Outpatient (CLI) | payer BC | LOC: M SLEEP HO 08-29 12:11 | PROVIDERS: ATTEND Student in an Organized Health Care Education/Training Program | DX: G47.9 Sleep disorder, unspecified (principal) ==

== ENCOUNTER → 2024-10-09 | Outpatient (REF) | payer BC ==
[2024-10-09 12:01] LABS: BASO % 0.1 % (0.0-1.0); EOS # 0.1 10^3/uL (0.0-0.5); EOS % 1.9 % (0.0-3.0); HEMATOCRIT 43.4 % (36.0-47.0); HEMOGLOBIN 14.5 g/dl (12.0-15.5); LYMPH # 2.6 10^3/uL (1.5-5.0); LYMPH % 34.7 % (24.0-44.0); MEAN CORPUSCULAR HEMOGLOBIN 30.3 pg (27.0-33.0); MEAN CORPUSCULAR HGB CONC 33.4 g/dl (32.0-36.5); MEAN CORPUSCULAR VOLUME 90.6 fl (80.0-96.0); MONO # 0.7 10^3/uL (0.0-0.8); MONO % 8.9 % (2.0-8.0); NEUTROPHILS % 54.1 % (36.0-66.0); PLATELET COUNT, AUTOMATED 347 10^3/uL (150-450); RED BLOOD COUNT 4.79 10^6/uL (4.00-5.40); WHITE BLOOD COUNT 7.4 10^3/uL (4.0-10.0)
[2024-10-09 12:05] LABS: ALBUMIN 3.9 G/DL (3.2-5.2); ALKALINE PHOSPHATASE 88 U/L (35-104); ALT/SGPT 39 U/L (7.0-40); AST/SGOT 30 U/L (<34); BILIRUBIN,TOTAL 0.3 MG/DL (0.3-1.2); BLOOD UREA NITROGEN 17 MG/DL (9-23); C REACTIVE PROTEIN QUANTITATIV 0.55 MG/DL (<1.0); CALCIUM LEVEL 9.4 MG/DL (8.5-10.1); CARBON DIOXIDE LEVEL 30 MMOL/L (20-31); CHLORIDE LEVEL 104 MMOL/L (98-107); CHOLESTEROL LEVEL 212 MG/DL (<200); CHOLESTEROL RISK RATIO 3.15 (<5); CREATININE FOR GFR 0.71 MG/DL (0.55-1.30); GLOMERULAR FILTRATION RATE > 60.0 (>51); GLUCOSE, FASTING 102 MG/DL (60-100); HDL CHOLESTEROL 67.3 MG/DL (>40); LDL CHOLESTEROL 110.3 MG/DL (<100); NON-HDL-C 144.7 MG/DL; POTASSIUM SERUM 4.4 MMOL/L (3.5-5.1); SODIUM LEVEL 142 MMOL/L (136-145); TOTAL PROTEIN 7.4 G/DL (5.7-8.2); TRIGLYCERIDES LEVEL 172 MG/DL (<150)
[2024-10-09 12:33] LABS: HEMOGLOBIN A1c 5.4 % (4.0-6.0)
[2024-10-11 15:47] LABS: NT PRO BNP SO < 36 pg/mL (<125)
[2024-10-13 04:58] LABS: LDL DIRECT 133 mg/dL (<100)
== END ==
LOC: M PLALAB 10:13
PROVIDERS: ATTEND Internal Medicine Cardiovascular Disease
DX: I44.7 Left bundle-branch block, unspecified (principal); E66.812 Obesity, class 2; R42 Dizziness and giddiness; E78.6 Lipoprotein deficiency; I50.9 Heart failure, unspecified; R06.02 Shortness of breath; E78.2 Mixed hyperlipidemia

== ENCOUNTER → 2025-04-03 | Outpatient (CLI) | payer BC ==
[2025-04-03 11:49] LABS: FREE T4 1.2 NG/DL (0.89-1.76)
== END ==
LOC: M PLALAB 07:17
PROVIDERS: ATTEND Nurse Practitioner Family
DX: E03.9 Hypothyroidism, unspecified (principal)